=== PATIENT | male | born 1995 | race Caucasian/White ===

== ENCOUNTER 2025-02-13 15:04 | Outpatient (CLI) | payer BC | END 2025-02-13 17:00 | disposition home or self-care (01) | LOC: Rad HDHVI 15:04 | PROVIDERS: ATTEND Internal Medicine Cardiovascular Disease | DX: I08.2 Rheumatic disorders of both aortic and tricuspid valves (principal); I10 Essential (primary) hypertension; I47.10 Supraventricular tachycardia, unspecified | CPT/HCPCS: 93306 ==

== ENCOUNTER → 2025-03-05 | Outpatient (CLI) | payer BC | END | disposition home or self-care (01) | LOC: Rad HDHVI 15:26 | PROVIDERS: ATTEND Internal Medicine Cardiovascular Disease | DX: R00.2 Palpitations (principal) | CPT/HCPCS: 93880 ==

== ENCOUNTER 2025-09-01 13:02 | Emergency (ER) | payer BC ==
[~2025-09-01] VITALS: Ht 180.3 cm; Wt 73.8 kg
--- NOTE | 2025-09-01 13:54 | ED.PDOC ---
GI ASSESSMENT HPI Comments This is a 30 year old male presenting to the ED with chief complaint of abdominal pain. Patient reports that he has been experiencing epigastric abdominal pain with associated nausea since last night around 7pm. Patient admits that he did some binge drinking over the weekend prior to the onset of his symptoms. Alleges that he does not drink every day. Patient denies any vomiting, diarrhea, fever, chills, or hematemesis. Chief Complaint: Abdominal Pain Time Seen by MD: 13:52 Reviewed Notes: Nurses Notes, Medications, Allergies Allergies: Coded Allergies: No Known Drug Allergy (Verified Allergy, Unknown, 03/20/25) Information Source: Patient Mode of Arrival: Ambulatory Timing: Hours Duration: Since onset Prehospital treatment: None Quality: Aching Vomitus: Watery Stool: Normal Severity: Moderate Recent: None Recent Hx of: None Pain Location: Epigastric Modifying Factors: Nothing Associated sign and symptoms: Nausea, Abdominal Pain Past Medical History PAST MEDICAL HISTORY: Denies Surgical History: Denies all surgeries Family History Family History: Reviewed,noncontributory to illness Social History Smoker: Non-Smoker Alcohol: Occasionally Drugs: Denies Drug Use Lives In: Home Constitutional: denies: chills, diaphoresis, fatigue, fever, malaise, sweats, weakness, others EENTM: denies: blurred vision, double vision, ear bleeding, ear discharge, ear drainage, ear pain, ear ringing, eye pain, eye redness, hearing loss, mouth pain, mouth swelling, nasal discharge, nose bleeding, nose congestion, nose pain, photophobia, tearing, throat pain, throat swelling, voice changes, others Respiratory: denies: cough, hemoptysis, orthopnea, SOB at rest, shortness of breath, SOB with excertion, stridor, wheezing, others Cardiovascular: denies: chest pain, dizzy spells, diaphoresis, Dyspnea on exertion, edema, irregular heart beat, left arm pain, lightheadedness, palpitations, PND, syncope, others Gastrointestinal: reports: abdominal pain, nausea; denies: abdomen distended, blood streaked bowels, constipated, diarrhea, dysphagia, difficulty swallowing, hematemesis, melena, poor appetite, poor fluid intake, rectal bleeding, rectal pain, vomiting, others Genitourinary: denies: burning, dysuria, flank pain, frequency, hematuria, incontinence, penile discharge, penile sore, pain, testicle pain, testicle swelling, urgency, others Neurological: denies: dizziness, fainting, headache, left sided numbness, left sided weakness, numbness, paresthesia, pre-existing deficit, right sided numbness, right sided weakness, seizure, speech problems, tingling, tremors, weakness, others Musculoskeletal: denies: back pain, gout, joint pain, joint swelling, muscle pain, muscle stiffness, neck pain, others Integumetry: denies: bruises, change in color, change in hair/nails, dryness, laceration, lesions, lumps, rash, wounds, others Allergic/Immunocompromised: denies: Difficulty Healing, Frequent Infections, Hives, Itching, others Hematologic/Lymphatic: denies: anemia, blood clots, easy bleeding, easy bruising, swollen glands, others Endocrine: denies: excessive hunger, excessive sweating, excessive thirst, excessive urination, flushing, intolerance to cold, intolerance to heat, unexplained weight gain, unexplained weight loss, others Psychiatric: denies: anxiety, bipolar disorder, depression, hopeless, panic disorder, schizophrenia, sleepless, suicidal, others All Other Systems: Reviewed and Negative Physical Exam General Appearance: No Apparent Distress, Normal HEENT: Normal ENT Inspection, Pharynx Normal, TMs Normal Neck: Full Range of Motion, Non-Tender, Normal, Normal Inspection Respiratory: Chest Non-Tender, Lungs Clear, No Accessory Muscle Use, No Respiratory Distress, Normal Breath Sounds Cardiovascular: No Edema, No JVD, No Murmur, No Gallop, Normal Peripheral Pulses, Regular Rate/Rhythm Breast Exam: Deferred Gastrointestinal: No Organomegaly, No Pulsatile Mass, Normal Bowel Sounds, Soft, Tenderness (Mild epigastric tenderness) Genitalia: Deferred Pelvic: Deferred Rectal: Deferred Extremities: No calf tenderness, Normal capillary refill, Normal inspection, Normal range of motion, Non-tender, No pedal edema Musculoskeletal : Apperance: Normal Neurologic: Alert, 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 Was a procedure done?: No GI differential Dx Differential Diagnosis: Cholecystitis, Gastritis/PUD, Gastroenteritis, Dehydration, Electrolyte Imbalance, Bacterial, Viral X-Ray, Labs, Meds, VS Vital Signs Date Time Temp Pulse Resp B/P (MAP) Pulse Ox O2 Delivery O2 Flow Rate FiO2 09/01/25 16:00 98.3 63 18 130/75 (93) 95 98.3 09/01/25 14:29 98.1 64 18 129/78 (95) 96 98.1 09/01/25 13:12 97.6 55 16 140/91 100 97.6 Lab Test 09/01/25 13:49 Range/Units White Blood Count 10.0 4.4-10.8 10^3/uL Red Blood Count 5.30 4.5-5.90 10^6/uL Hemoglobin 15.7 13.5-17.5 g/dL Hematocrit 43.8 41.0-53.0 % Mean Corpuscular Volume 82.6 80.0-100.0 fL Mean Corpuscular Hemoglobin 29.7 28.0-32.0 pg Mean Corpuscular Hemoglobin Concent 35.9 32.0-36.0 g/dL Red Cell Distribution Width 13.2 11.8-14.3 % Platelet Count 233 140-450 10^3/uL Mean Platelet Volume 8.3 6.9-10.8 fL Neutrophils (%) (Auto) 84.4 H 37.0-80.0 % Lymphocytes (%) (Auto) 7.8 L 10.0-50.0 % Monocytes (%) (Auto) 6.7 0.0-12.0 % Eosinophils (%) (Auto) 0.8 0.0-7.0 % Basophils (%) (Auto) 0.3 0.0-2.0 % Neutrophils # (Auto) 8.4 1.6-8.6 10 ^3/uL Lymphocytes # (Auto) 0.8 0.4-5.4 10 ^3/uL Monocytes # (Auto) 0.7 0-1.3 10 ^3/uL Eosinophils # (Auto) 0.1 0-0.8 10 ^3/uL Basophils # (Auto) 0 0-0.2 10 ^3/uL Nucleated Red Blood Cells 0.0 % Sodium Level 138 136-145 mmol/L Potassium Level 3.9 3.5-5.1 mmol/L Chloride Level 102 98-107 mmol/L Carbon Dioxide Level 26 20-31 mmol/L Anion Gap 10 5-15 Blood Urea Nitrogen 10 9-23 mg/dL Creatinine 0.90 0.700-1.30 mg/dL Glomerular Filtration Rate Calc 119 >90 mL/min BUN/Creatinine Ratio 11.1 10.0-20.0 Serum Glucose 99 74-106 mg/dL Calcium Level 10.7 H 8.7-10.4 mg/dL Lipase 284 H 12-53 U/L Current Medications Medications (Trade) Dose Ordered Sig/Riaz Route Start Time Stop Time Status Last Admin Acetaminophen (Tylenol Tablet Or Capsule) 1,000 mg ONCE ONCE PO 09/01/25 13:45 09/01/25 13:46 DC 09/01/25 14:25 Ondansetron HCl (Zofran Po) 4 mg ONCE ONCE PO 09/01/25 13:45 09/01/25 13:46 DC 09/01/25 14:26 Al Hydrox/Mg Hydrox/Simethicone (Maalox Plus) 30 ml ONCE ONCE PO 09/01/25 13:45 09/01/25 13:46 DC 09/01/25 14:25 Famotidine (Pepcid Tablet) 20 mg ONCE ONCE PO 09/01/25 13:45 09/01/25 13:46 DC 09/01/25 14:25 Ketorolac Tromethamine (Toradol Injection) 30 mg ONCE ONCE IM 09/01/25 14:45 09/01/25 14:46 DC 09/01/25 15:53 Time of 1ST Reevaluation: 14:51 Reevaluation 1ST: Unchanged Time of 2ND Reevaluation: 17:19 (Abdominal pain resolved) Patient Education/Counseling: Diagnosis, Treatment Family Education/Counseling: Diagnosis, Treatment SEPSIS Sepsis Screen Date sepsis recognized/suspect: Sep 01, 2025 Time Sepsis recognized/suspect: 1313 Recent Procedure: No On Antibiotic Therapy: No Respiratory Rate >20: No Heart Rate >90: No Temp<36 C (96.8 F) or >38.3 C: No SBP <90 or MAP <65 mmHG: No New Acute Mental Status Change: No Is the patient on CPAP, BIPAP,: No Physician Orders Urinalysis (09/01/25 13:43) Abdomen Limited (09/01/25 14:38) Vital Signs Date Time Temp Pulse Resp B/P (MAP) Pulse Ox O2 Delivery O2 Flow Rate FiO2 09/01/25 16:00 98.3 63 18 130/75 (93) 95 98.3 09/01/25 14:29 98.1 64 18 129/78 (95) 96 98.1 09/01/25 13:12 97.6 55 16 140/91 100 97.6 Laboratory Tests Test 09/01/25 13:49 White Blood Count 10.0 10^3/uL (4.4-10.8) Medications Medications Dose Ordered Sig/Riaz Route Start Time Stop Time Status Last Admin Dose Admin Acetaminophen 1,000 mg ONCE ONCE PO 09/01/25 13:45 09/01/25 13:46 DC 09/01/25 14:25 Al Hydrox/Mg Hydrox/Simethicone 30 ml ONCE ONCE PO 09/01/25 13:45 09/01/25 13:46 DC 09/01/25 14:25 Famotidine 20 mg ONCE ONCE PO 09/01/25 13:45 09/01/25 13:46 DC 09/01/25 14:25 Ketorolac Tromethamine 30 mg ONCE ONCE IM 09/01/25 14:45 09/01/25 14:46 DC 09/01/25 15:53 Ondansetron HCl 4 mg ONCE ONCE PO 09/01/25 13:45 09/01/25 13:46 DC 09/01/25 14:26 Departure 1 Departure Time of Disposition: 17:30 (30-year-old male with no past medical history who came in for 1 day of midepigastric pain and nausea. Given that pain started after he had been binge drinking consider possible alcoholic gastritis vs peptic ulcer disease versus reflux. Given the mid abdominal discomfort in the setting of binge drinking consider possible pancreatitis. Lipase is in the 200s. Patient with no known history of gallstones. Given the elevated lipase an abdominal ultrasound was performed which shows no evidence of any acute intra- abdominal process, no findings of acute biliary obstruction. CBC with no evidence of critical leukocytosis or significant anemia. Metabolic panel with no evidence of any acute electrolyte abnormalities or acute kidney insufficiency. Liver function tests are within normal limits. Patient was treated for discomfort with IM Toradol, oral Tylenol, oral Pepcid, Maalox and oral Zofran. Reports improvement of symptoms after interventions. Advised on alcohol use cessation. Patient likely with mild acute alcoholic pancreatitis from recent binge drinking. At this time does not require admission. Will be given a prescription for Tylenol, Pepcid, Zofran. However, advised to return for worsening symptoms.) Impression: Primary Impression: Epigastric abdominal pain Additional Impressions: Nausea Acute alcoholic pancreatitis Disposition: HOME / SELF CARE / HOMELESS Condition: Other e-Prescriptions Ondansetron Odt 4MG Tab (ZOFRAN PO) 4 Mg Tb 4 MG PO Q6HPRN PRN for 3 Days, #12 TAB ODT TAB-DISSOLVE IN MOUTH, THEN SWALLOW Prov: FREDRICK ERVIN MD 09/01/25 Famotidine (PEPCID TABLET) 20 Mg Tb 1 TAB PO DAILY PRN for 30 Days, #30 TAB 5 Refills Prov: FREDRICK ERVIN MD 09/01/25 Acetaminophen (Acetaminophen Extra Stren) 500 Mg Tab 1000 MG PO TID for 10 Days, #60 TAB Prov: FREDRICK ERVIN MD 09/01/25 Discharged With: Self Critical Care Note Critical Care Time?: No Stability Stability form required: No Heart Score Heart Score: Heart Score Response (Comments) Value History N/A 0 EKG N/A 0 Age N/A 0 Risk Factors N/A 0 Troponin N/A 0 Total 0 I personally scribed for FREDRICK ERVIN MD ([email or web address]) on 09/01/25 at 13:54. Electronically submitted by Davie Jo ([email or web address]). FREDRICK ERVIN MD Sep 01, 2025 13:54
[2025-09-01 14:05] LABS: Hematocrit 43.8 % (41.0-53.0); Hemoglobin 15.7 g/dL (13.5-17.5); Mean Corpuscular Hemoglobin 29.7 pg (28.0-32.0); Mean Corpuscular Volume 82.6 fL (80.0-100.0); Nucleated Red Blood Cells % 0.0 %
[2025-09-01 14:15] LABS: Anion Gap 10 (5-15); Carbon Dioxide 26 mmol/L (20-31); Chloride 102 mmol/L (98-107); Potassium 3.9 mmol/L (3.5-5.1); Sodium 138 mmol/L (136-145)
[2025-09-01 14:21] LABS: BUN/Creatinine Ratio 11.1 (10.0-20.0); Blood Urea Nitrogen 10 mg/dL (9-23); Calcium 10.7 mg/dL (8.7-10.4); Glucose 99 mg/dL (74-106); Lipase 284 U/L (12-53)
[2025-09-01] MEDS: MAALOX PLUS or MAALOX 30 ML PO ONE (14:25)
[2025-09-01] MEDS: ACETAMINOPHEN 500 MG TAB or CAP PO ONE (14:25)
[2025-09-01] MEDS: FAMOTIDINE 20 MG TAB PO ONE (14:25)
[2025-09-01] MEDS: ONDANSETRON ODT 4 MG TAB PO ONE (14:26)
--- NOTE | 2025-09-01 15:35 | DVH ---
CLINICAL HISTORY: epigastric pain, +pancreatitis, eval for gallstones TECHNIQUE: Transabdominal sonogram was performed of the right upper quadrant. COMPARISON: None FINDINGS: The liver is normal in echogenicity. There is no focal parenchymal abnormality. No intrahepatic biliary ductal dilatation is present. The liver measures 15.6 cm. The gallbladder is normal with no evidence for stones or wall thickening. The common bile duct is not seen. There is no Dilated structure in its expected location. The pancreas is not well seen. The right kidney is increased in echogenicity and measures 10 cm in length. There is no evidence for hydronephrosis or calculi. IMPRESSION: Echogenic right kidney, compatible with medical renal disease. No hydronephrosis.
[2025-09-01] MEDS: KETOROLAC TROMETH 60MG/2ML VIAL IM ONE (15:53)
[2025-09-01] MEDS ORDERED: ACET-6 PO (17:22)
[2025-09-01] MEDS ORDERED: FAMO20TA10 PO (17:22)
[2025-09-01] MEDS ORDERED: ZOFR4T PO (17:22)
[2025-09-01 18:08] VITALS: BP 130/87; PULSE 60; RESP 17; TEMP 98.7; O2SAT 98
== END 2025-09-01 18:10 | disposition home or self-care (01) ==
LOC: ER 13:02
DX: K85.20 Alcohol induced acute pancreatitis without necrosis or infection (principal)
CPT/HCPCS: 36415; 76705; 80048; 83690; 85025; 96372; 99285; J1885; Q0162